=== PATIENT | female | born 1955 | race Caucasian/White ===

== ENCOUNTER → 2016-11-02 | Outpatient (CLI) | payer OTHER ==
[~2016-11-02] MED LIST: COQ1200C3 PO; EFFE150C PO; KETO75 PO; LISI10TA PO; META800 PO; MOME17I; RED600TA PO; TAB-TAB PO; TYLE3 PO
[2016-11-02 11:52] LABS: HEMATOCRIT 41.6 % (35.0-46.0); MEAN CORPUSCULAR HEMOGLOBIN 27.9 PG (27.0-34.0); MEAN CORPUSCULAR HGB CONC 32.4 % (32.0-36.0); PLATELET COUNT 229 TH/MM3 (150-450); RED BLOOD COUNT 4.84 MIL/MM3 (4.00-5.30); REVIEW FLAG FINAL; WHITE BLOOD COUNT 5.3 TH/MM3 (4.0-11.0)
[2016-11-02 13:55] LABS: ALKALINE PHOSPHATASE 109 U/L (45-117); ALT (GPT) 45 U/L (10-53); ANION GAP 6 MEQ/L (5-15); AST (GOT) 37 U/L (15-37); BICARBONATE 29.6 MEQ/L (21.0-32.0); BLOOD UREA NITROGEN 20 MG/DL (7-18); CHLORIDE 99 MEQ/L (98-107); GLOMERULAR FILTRATION RATE 42 ML/MIN (>89); GLUCOSE,FASTING 87 MG/DL (74-99); HDL CHOLESTEROL 42.3 MG/DL (40.0-60.0); LDL CHOLESTEROL 55 MG/DL (0-99); POTASSIUM 3.7 MEQ/L (3.5-5.1); SODIUM (NA) 135 MEQ/L (136-145); TOTAL BILIRUBIN ADULT 0.5 MG/DL (0.2-1.0)
== END ==
LOC: OLAB 11:24
PROVIDERS: ATTEND Family Medicine
DX: B02.29 Other postherpetic nervous system involvement (principal); M51.26 Other intervertebral disc displacement, lumbar region; K31.84 Gastroparesis; E78.5 Hyperlipidemia, unspecified; R94.4 Abnormal results of kidney function studies; N18.3 Chronic kidney disease, stage 3 (moderate); M87.39 Other secondary osteonecrosis, multiple sites; Z87.39 Personal history of other diseases of the musculoskeletal system and connective tissue; Z68.32 Body mass index [BMI] 32.0-32.9, adult; Z91.09 Other allergy status, other than to drugs and biological substances
CPT/HCPCS: 80053; 80061; 82652; 83970; 84443; 85027

== ENCOUNTER → 2017-02-19 | Outpatient (CLI) | payer OTHER ==
[2017-02-19 12:31] LABS: AUTOMATED NEUTROPHIL # 3.6 TH/MM3 (1.8-7.7); BASOPHIL % 0.7 % (0.0-2.0); EOSINOPHIL # 0.2 TH/MM3 (0-0.4); EOSINOPHIL % 4.5 % (0.0-4.0); HEMATOCRIT 43.3 % (35.0-46.0); HEMO FLAGS DIFF FINAL; LYMPH % 22.3 % (9.0-44.0); LYMPHOCYTE # 1.2 TH/MM3 (1.0-4.8); MEAN CORPUSCULAR HEMOGLOBIN 28.1 PG (27.0-34.0); MEAN CORPUSCULAR HGB CONC 32.7 % (32.0-36.0); MONO % 8.8 % (0.0-8.0); NEUT % 63.7 % (16.0-70.0); PLATELET COUNT 238 TH/MM3 (150-450); RED BLOOD COUNT 5.03 MIL/MM3 (4.00-5.30); RED CELL DISTRIBUTION WIDTH 13.2 % (11.6-17.2); WHITE BLOOD COUNT 5.6 TH/MM3 (4.0-11.0)
[2017-02-19 12:43] LABS: ALT (GPT) 42 U/L (10-53)
[2017-02-19 12:51] LABS: ALKALINE PHOSPHATASE 117 U/L (45-117); ANION GAP 9 MEQ/L (5-15); BICARBONATE 27.3 MEQ/L (21.0-32.0); BLOOD UREA NITROGEN 16 MG/DL (7-18); CHLORIDE 102 MEQ/L (98-107); CREATINE KINASE 318 U/L (26-192); GLOMERULAR FILTRATION RATE 39 ML/MIN (>89); GLUCOSE,FASTING 108 MG/DL (74-99); SODIUM (NA) 138 MEQ/L (136-145); TOTAL BILIRUBIN ADULT 0.5 MG/DL (0.2-1.0)
[2017-02-19 12:58] LABS: AST (GOT) 40 U/L (15-37); POTASSIUM 4.3 MEQ/L (3.5-5.1)
[2017-02-19 14:19] LABS: CKMB 4.2 NG/ML (0.5-3.6)
== END ==
LOC: CLAB 12:06
PROVIDERS: ATTEND Allergy & Immunology
DX: M06.09 Rheumatoid arthritis without rheumatoid factor, multiple sites (principal); M77.01 Medial epicondylitis, right elbow; Z79.899 Other long term (current) drug therapy
CPT/HCPCS: 80053; 82550; 82552; 85025; 86140

== ENCOUNTER → 2017-03-22 | Outpatient (CLI) | payer OTHER ==
[2017-03-22 11:54] LABS: HEMATOCRIT 40.5 % (35.0-46.0); MEAN CELL VOLUME 86.8 FL (80.0-100.0); MEAN CORPUSCULAR HEMOGLOBIN 29.1 PG (27.0-34.0); MEAN CORPUSCULAR HGB CONC 33.5 % (32.0-36.0); PLATELET COUNT 203 TH/MM3 (150-450); RED BLOOD COUNT 4.67 MIL/MM3 (4.00-5.30); RED CELL DISTRIBUTION WIDTH 13.5 % (11.6-17.2); REVIEW FLAG FINAL
[2017-03-22 12:26] LABS: ANION GAP 9 MEQ/L (5-15); AST (GOT) 32 U/L (15-37); BICARBONATE 27.1 MEQ/L (21.0-32.0); BLOOD UREA NITROGEN 13 MG/DL (7-18); CHLORIDE 101 MEQ/L (98-107); GLOMERULAR FILTRATION RATE 46 ML/MIN (>89); GLUCOSE,FASTING 112 MG/DL (74-99); POTASSIUM 4.1 MEQ/L (3.5-5.1); SODIUM (NA) 137 MEQ/L (136-145)
[2017-03-22 12:30] LABS: WESTERGREN SEDIMENTATION RATE 13 mm/hr (0-30)
[2017-03-22 12:36] LABS: ALKALINE PHOSPHATASE 98 U/L (45-117); ALT (GPT) 33 U/L (10-53); HDL CHOLESTEROL 42.5 MG/DL (40.0-60.0); LDL CHOLESTEROL 80 MG/DL (0-99); TOTAL BILIRUBIN ADULT 0.4 MG/DL (0.2-1.0)
== END ==
LOC: CLAB 11:32
PROVIDERS: ATTEND Family Medicine
DX: K31.84 Gastroparesis (principal); E78.5 Hyperlipidemia, unspecified; M51.26 Other intervertebral disc displacement, lumbar region; M06.9 Rheumatoid arthritis, unspecified; N18.3 Chronic kidney disease, stage 3 (moderate); Z87.39 Personal history of other diseases of the musculoskeletal system and connective tissue
CPT/HCPCS: 36415; 80053; 80061; 84443; 85027; 85652

== ENCOUNTER → 2017-07-26 | Outpatient (CLI) | payer OTHER ==
[2017-07-26 12:56] LABS: HEMATOCRIT 40.8 % (35.0-46.0); MEAN CORPUSCULAR HGB CONC 32.9 % (32.0-36.0); PLATELET COUNT 235 TH/MM3 (150-450); RED BLOOD COUNT 4.64 MIL/MM3 (4.00-5.30); RED CELL DISTRIBUTION WIDTH 13.6 % (11.6-17.2); REVIEW FLAG FINAL; WHITE BLOOD COUNT 4.8 TH/MM3 (4.0-11.0)
[2017-07-26 13:25] LABS: ANION GAP 8 MEQ/L (5-15); AST (GOT) 34 U/L (15-37); BLOOD UREA NITROGEN 12 MG/DL (7-18); CHLORIDE 99 MEQ/L (98-107); GLOMERULAR FILTRATION RATE 48 ML/MIN (>89); GLUCOSE,FASTING 119 MG/DL (74-99); SODIUM (NA) 136 MEQ/L (136-145); WESTERGREN SEDIMENTATION RATE 7 mm/hr (0-30)
[2017-07-26 13:36] LABS: ALKALINE PHOSPHATASE 97 U/L (45-117); ALT (GPT) 43 U/L (10-53); HDL CHOLESTEROL 41.6 MG/DL (40.0-60.0); LDL CHOLESTEROL 53 MG/DL (0-99); TOTAL BILIRUBIN ADULT 0.3 MG/DL (0.2-1.0)
== END ==
LOC: OLAB 10:58
PROVIDERS: ATTEND Family Medicine
DX: K31.84 Gastroparesis (principal); E78.5 Hyperlipidemia, unspecified; M51.26 Other intervertebral disc displacement, lumbar region; M06.9 Rheumatoid arthritis, unspecified; N18.3 Chronic kidney disease, stage 3 (moderate); Z87.39 Personal history of other diseases of the musculoskeletal system and connective tissue; Z68.33 Body mass index [BMI] 33.0-33.9, adult
CPT/HCPCS: 80053; 80061; 84443; 85027; 85652

== ENCOUNTER → 2017-08-04 | Outpatient (CLI) | payer OTHER ==
[~2017-08-04] MED LIST changes: +CHLORHEXIDINE GLUCONATE 2 % 1 PACK (2 CLOTHS) TOPICAL PRN; +LACTATED RINGER'S 1000 ML IV PRN; +LIDOCAINE HCL 1% PF 5 ML SYRINGE OTHER ONE; +METOPROLOL TARTRATE 25 MG TAB PO PRN; +POVIDONE IODINE 5% (ANTISEPSIS KIT) 4 APPLICATIONS EACH NARE PRN; +PROPOFOL 200 MG/20 ML AMP IV ONE; +SODIUM CHLORID 0.9% 500 ML IV PRN
--- NOTE | 2017-08-04 12:41 | EKG ---
Date Performed: 08/04/2017 Time Performed: 11:24:36 PTAGE: 62 years EKG: Sinus rhythm POSSIBLE INFERIOR MYOCARDIAL INFARCTION , PROBABLY OLD BORDERLINE ECG No significant change from kendra or electrocardiogram. PREVIOUS TRACING : 12/08/2007 10.37 DOCTOR: Joe Nicholson Interpretating Date/Time 08/04/2017 12:39:40
[2017-08-04 14:20] VITALS: BP 154/92; PULSE 86; RESP 18; O2SAT 94
--- NOTE | 2017-08-04 14:22 | GIPROC ---
[facility] [address] [facility]. 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 TOPICAL ANESTHETIC: None CONSENT: The patient understands the risks and benefits of the procedure and understands that these risks include, but are not limited to: sedation, allergic reaction, infection, perforation and/or bleeding. Alternative means of evaluation and treatment include, among others: physical exam, x-rays, and/or surgical intervention. The patient elects to proceed with this endoscopic procedure. medical equipment was checked for proper function. Hand hygiene and appropriate measures for infection prevention was taken. After the risks, benefits and alternatives of the procedure were thoroughly explained, Informed consent was verified, confirmed and timeout was successfully executed by the treatment team. The patient was anesthetized with topical anesthesia and the endoscope was introduced through the mouth and advanced to the . Retroflexion was performed The gastroscope was then slowly withdrawn and removed. NL Z-line/GE jxn, 38cm. Bile in the stomach. NL antrum/pylorus. NL 2nd duodenum. NL retroflexion. Over a guidewire an 18mm Savary dilator was passed with moderate resistance met at the level of the upper esophageal sphincter. ADVERSE EVENTS: There were no complications. IMPRESSIONS: Cricopharyngeal achalasia RECOMMENDATIONS: D/C home. Avoid cold fluid/foods and drink warm liquid, especially before and with pills and meals. PATIENT CONDITION: unstable DISPOSITION: Home REPEAT EXAM: Rustam Bull MD eSigned: Rustam Bull MD 08/04/2017 2:21 PM cc: Tess Laureano M.D. PATIENT NAME: Vernell Ren MR#: [id number]
== END ==
LOC: HSDC 10:59
DX: R13.10 Dysphagia, unspecified (principal); K22.0 Achalasia of cardia; Z01.810 Encounter for preprocedural cardiovascular examination
CPT/HCPCS: 00740; 43248; 93005; C1769

== ENCOUNTER → 2017-12-24 | Outpatient (CLI) | payer OTHER ==
[2017-12-24 11:59] LABS: AUTOMATED NEUTROPHIL # 3.2 TH/MM3 (1.8-7.7); BASOPHIL % 0.5 % (0.0-2.0); EOSINOPHIL # 0.3 TH/MM3 (0-0.4); EOSINOPHIL % 6.9 % (0.0-4.0); HEMATOCRIT 42.3 % (35.0-46.0); LYMPH % 20.3 % (9.0-44.0); MEAN CELL VOLUME 85.9 FL (80.0-100.0); MEAN CORPUSCULAR HEMOGLOBIN 28.5 PG (27.0-34.0); MEAN CORPUSCULAR HGB CONC 33.1 % (32.0-36.0); MEAN PLATELET VOLUME 7.3 FL (7.0-11.0); MONOCYTE # 0.4 TH/MM3 (0-0.9); NEUT % 63.3 % (16.0-70.0); PLATELET COUNT 223 TH/MM3 (150-450); RED BLOOD COUNT 4.93 MIL/MM3 (4.00-5.30); RED CELL DISTRIBUTION WIDTH 13.1 % (11.6-17.2); WHITE BLOOD COUNT 4.9 TH/MM3 (4.0-11.0)
[2017-12-24 17:32] LABS: CREATININE 1.55 MG/DL (0.50-1.00); GLOMERULAR FILTRATION RATE 34 ML/MIN (>89)
[2017-12-24 17:38] LABS: ALBUMIN 4.2 GM/DL (3.4-5.0); AST (GOT) 57 U/L (15-37); BICARBONATE 28.9 MEQ/L (21.0-32.0); BLOOD UREA NITROGEN 20 MG/DL (7-18); CALCIUM 8.9 MG/DL (8.5-10.1); CHLORIDE 101 MEQ/L (98-107); GLUCOSE,FASTING 131 MG/DL (74-99); SODIUM (NA) 135 MEQ/L (136-145)
[2017-12-24 17:44] LABS: ALKALINE PHOSPHATASE 86 U/L (45-117); ALT (GPT) 55 U/L (10-53); C-REACTIVE PROTEIN 0.32 MG/DL (0.00-0.30); CHOLESTEROL 150 MG/DL (120-200); CHOLESTEROL/ HDL RATIO 3.21 RATIO; HDL CHOLESTEROL 46.6 MG/DL (40.0-60.0); LDL CHOLESTEROL 66 MG/DL (0-99); TOTAL BILIRUBIN ADULT 0.8 MG/DL (0.2-1.0); TOTAL PROTEIN 8.1 GM/DL (6.4-8.2); TRIGLYCERIDES 186 MG/DL (42-150)
== END ==
LOC: OLAB 11:36
PROVIDERS: ATTEND Family Medicine
DX: K31.84 Gastroparesis (principal); E78.5 Hyperlipidemia, unspecified; M51.26 Other intervertebral disc displacement, lumbar region; M06.821 Other specified rheumatoid arthritis, right elbow; N18.3 Chronic kidney disease, stage 3 (moderate); Z87.39 Personal history of other diseases of the musculoskeletal system and connective tissue; Z68.34 Body mass index [BMI] 34.0-34.9, adult
CPT/HCPCS: 36415; 80053; 80061; 82550; 82552; 84443; 85025; 86140